=== PATIENT | female | born 1970 ===

== ENCOUNTER 2024-02-05 10:42 | Outpatient (CLI) | payer OTHER | END 2024-02-05 10:43 | disposition home or self-care (01) | LOC: CSHULT 10:42 | PROVIDERS: ATTEND Nurse Practitioner Family | DX: R10.11 Right upper quadrant pain (principal); K80.20 Calculus of gallbladder without cholecystitis without obstruction; K83.8 Other specified diseases of biliary tract | CPT/HCPCS: 76705 ==